=== PATIENT | female | born 1970 | race Caucasian/White ===

== ENCOUNTER → 2016-05-13 | Outpatient (CLI) | payer BC ==
--- NOTE | 2016-05-13 14:52 | CT ---
EXAMINATION TYPE: CT cervical spine w con DATE OF EXAM: 05/13/2016 2:17 PM COMPARISON: NONE HISTORY: Radiculopathy, pain CT DLP: 511.8 mGycm Contrast-enhanced CT of the cervical spine was performed with bone and soft tissue window settings tripathi bmitted. Coronal and sagittal reconstruction is obtained. There is normal alignment and prevertebra l soft tissues. I do not see evidence for fracture or subluxation. No significant degenerative patterson ges are present. Disc spaces are well preserved. No pathologic enhancement identified. Upper lung zon e emphysematous changes. IMPRESSION: No evidence for fracture or subluxation of the cervical spine. No significant disc herni ation or central stenosis.
== END | disposition home or self-care (01) ==
LOC: RADCTMAIN 13:42
PROVIDERS: ATTEND Family Medicine
DX: M54.12 Radiculopathy, cervical region (principal)
CPT/HCPCS: 72126; Q9967

== ENCOUNTER 2016-11-05 06:55 | Day surgery (SDC) | payer BC ==
[2016-10-31 10:57] VITALS: BMI 29.0
[~2016-11-05 06:55] MED LIST: LACTATED RINGERS 1,000 ML IV SCH; LIDOCAINE 1% 20 ML VIAL (10MG/ML) FOR IV START INTRADERMA PRN
[2016-11-05] MEDS: PHENYLEPHRINE 10% OPHTH DROPS 5 ML BTL OP ONE ×3 (07:47→08:01)
[2016-11-05] MEDS: CYCLOPENTOLATE 1% OPHTH SOLN 2 ML BTL OP ONE ×3 (07:50→08:03)
[2016-11-05] MEDS: FLURBIPROFEN 0.03% OPHTH DROPS 2.5 ML BTL OP ONE ×3 (07:52→08:05)
[2016-11-05 07:59] VITALS: RESP 16; TEMP 98.5
[2016-11-05] MEDS ORDERED: PROPOFOL 10 MG/ML 20 ML VIAL IV ONE (08:37)
[2016-11-05] MEDS ORDERED: BALANCED SALT IRRIG SOLN COMB2 15 ML IRRIG.SOLN IRRIGATION ONE (08:37)
[2016-11-05] MEDS ORDERED: HYALURONATE SODIUM INTRAOCULAR 1 EACH SYRINGE (10MG/ML) INTRAOCULA ONE (08:37)
[2016-11-05] MEDS ORDERED: EPINEPHrine (PF) 0.5 ML in BALANCED SALT IRRIG SOLN COMB2 500 ML IRRIGATION ONE (08:39)
--- NOTE | 2016-11-05 08:59 | P.OP ---
Date of Procedure: 11/05/16 Preoperative Diagnosis: Postoperative Diagnosis: Procedure(s) Performed: PREOPERATIVE DIAGNOSIS: Cataract, left eye. POSTOPERATIVE DIAGNOSIS: Cataract, left eye. OPERATION: Phacoemulsification cataract, left eye. DESCRIPTION OF PROCEDURE: The patient was taken to the preoperative holding area. Intravenous Propofol was given so as to bring about adequate sedation. The following mixture was given for local anesthesia: 5 mL of 2% lidocaine, 5 mL of 0.75% Marcaine, and 1 mL of Wydase. Approximately 4 mL was injected in the retrobulbar space of the surgical eye. Additional 1 mL was then directed to the temporal area of the surgical eye. This was performed to allow adequate neurological block of the facial muscles. The patient was revived and then taken into the operative room. The patient was prepped and draped in the usual sterile manner for the operative eye. A lid speculum was put into position. The conjunctiva was resected back from the limbus in the 12 o'clock position. Bleeding was controlled with electrocautery. A #69 blade was then used and a half-thickness scleral incision approximately 1-mm posterior to the limbus was made on bare sclera. This was shelved in the clear cornea using a crescent knife. Next a 15-degree blade was used to make a stab incision at the 3 o' clock position at the corneolimbal interface. Keratome blade was then used and the superior wound was extended into the anterior chamber. Viscoelastic was injected into the anterior chamber and to maintain its form. Next, a cystotome was used and a continuous anterior capsulotomy was made without difficulty. Hydrodissection using a blunt cannula and BSS was performed. Phaco probe was then employed and a groove extending from 12 to 6 o'clock in the lens was created. A Asad wand was used through the stab incision so as to perform a divide and conquer technique. Next an irrigation aspiration probe was utilized and any residual cortex was removed from the eye. Again, viscoelastic was injected into the anterior chamber. An Lit posterior chamber lens implant was placed in the cartridge and injected into the anterior chamber without difficulty. The Strauss Technologyey hook was utilized to spin the lens into position and this was again performed without any difficulty. The irrigation and aspiration probe was again employed and any residual viscoelastic was removed from the eye. Then BSS was injected into the limbal stab incision and the anterior chamber re-inflated. The conjunctiva was reapproximated using electrocautery. One drop of 0.25% Timoptic was placed over the corneal along with TobraDex ophthalmic ointment. Two sterile patches and a Dickson eye shield were taped into position. The patient was transported to the recovery room in stable condition. Implants: Pathology: none sent Condition: stable Disposition: same day Indications for Procedure: Operative Findings: Description of Procedure:
[2016-11-05 09:18] VITALS: BP 167/90; PULSE 65
[2016-11-05] MEDS ORDERED: TIMOLOL 0.5% OPHTH SOLN (PF) 0.2 ML DROPERETTE OP ONE (23:00)
[2016-11-05] MEDS ORDERED: BUPIVACAINE (PF) 0.75% 5 ML, LIDOCAINE 4% (PF) 5 ML, HYALURONIDASE, HUMAN RECOMB 150 UNIT MISCELLANE ONE ×3 (23:00)
[2016-11-05] MEDS ORDERED: GENTAMICIN/PREDNISOL AC OPHTH OINT 3.5GM OPHTHALMIC ONE (23:00)
== END 2016-11-05 09:42 | disposition home or self-care (01) ==
LOC: OR 06:55
PROVIDERS: ATTEND Ophthalmology
DX: H26.9 Unspecified cataract (principal); H40.1190 Primary open-angle glaucoma, unspecified eye, stage unspecified; M19.90 Unspecified osteoarthritis, unspecified site; F17.200 Nicotine dependence, unspecified, uncomplicated; Z79.1 Long term (current) use of non-steroidal anti-inflammatories (NSAID); Z79.82 Long term (current) use of aspirin; Z79.891 Long term (current) use of opiate analgesic; Z79.899 Other long term (current) drug therapy; Z91.040 Latex allergy status; Z91.09 Other allergy status, other than to drugs and biological substances
CPT/HCPCS: 66984; V2632; J2001; J3470; J0171; J2704

== ENCOUNTER → 2017-04-01 | Day surgery (SDC) | payer BC ==
[2017-03-31 10:04] VITALS: BMI 28.5
[~2017-04-01] MED LIST changes: +LIDOCAINE 1% 20 ML VIAL (10MG/ML) FOR IV START INTRADERMA ONE; -LIDOCAINE 1% 20 ML VIAL (10MG/ML) FOR IV START INTRADERMA PRN; +LIDOCAINE 1% INJ 10MG/ML (20 ML MDV) ONE; +PROPOFOL 10 MG/ML 20 ML VIAL IV ONE
[2017-04-01 10:10] VITALS: TEMP 97.3
--- NOTE | 2017-04-01 10:42 | P.GSHP ---
History of Present Illness H&P Date: 04/01/17 Chief Complaint: GERD This a 38-year-old female for from Dr. Rajiv Reyes. Patient presents today for EGD. She's had issues with GERD. Past Medical History Past Medical History: COPD, Eye Disorder, GERD/Reflux, Liver Disease, Sleep Apnea/CPAP/BIPAP Additional Past Medical History / Comment(s): TROUBLE SWALLOWING, HX HEPATITS C , CHRONIC MICHA SHOULDER PAIN, GLAUCOMA, hx migraines, RESTLESS LEG History of Any Multi-Drug Resistant Organisms: None Reported Past Surgical History: Hysterectomy, Orthopedic Surgery Additional Past Surgical History / Comment(s): MICHA SHOULDERS ROTATOR CUFF, MICHA SHOULDERS BONE SPURS REMOVED, MICHA CATARACT SX, benign lump removed from nose Past Anesthesia/Blood Transfusion Reactions: Motion Sickness Smoking Status: Current every day smoker - Past Family History Father Family Medical History: Diabetes Mellitus, Hypertension, Myocardial Infarction ( NM), Osteoarthritis (OA) Mother Family Medical History: No Reported History Medications and Allergies Home Medications Medication Instructions Recorded Confirmed Type ALPRAZolam [Xanax] 2 mg PO HS 01/11/15 04/01/17 History Hydrocodone/Acetaminophen 1 tab PO QID PRN 01/11/15 04/01/17 History [Hydrocodon-Acetaminoph 7.5-325] Timolol 0.5% Ophth Gel Forming 1 drop BOTH EYES QAM 01/11/15 04/01/17 History [Timoptic-Xe 0.5% Gel Form] ZOLMitriptan [Zomig] 2.5 mg PO Q4H PRN 10/25/15 04/01/17 History Omeprazole [PriLOSEC] 40 mg PO DAILY 03/28/16 04/01/17 History Aspirin [Adult Low Dose Aspirin EC] 81 mg PO DAILY 10/31/16 04/01/17 History Aspirin/Acetaminophen/Caffeine 1 each PO QAM 10/31/16 04/01/17 History [Mynor's Ex-Str Powder Packet] Meloxicam [Mobic] 7.5 mg PO DAILY 10/31/16 04/01/17 History Tiotropium Br/Olodaterol HCl 1 spray INHALATION DAILY 10/31/16 04/01/17 History [Stiolto Respimat Inhal [place]] Albuterol Inhaler [Ventolin Hfa 1 - 2 puff INHALATION Q6HR PRN 03/31/17 History Inhaler] Calcium Carbonate [Calcium] 600 mg PO DAILY 03/31/17 03/31/17 History Cholecalciferol (Vitamin D3) 4,000 unit PO DAILY 03/31/17 03/31/17 History [Vitamin D3] Cyclobenzaprine [Flexeril] 10 mg PO TID 03/31/17 03/31/17 History Magnesium 250 mg PO DAILY 03/31/17 03/31/17 History Varenicline [Chantix] 1 mg PO BID 03/31/17 03/31/17 History rOPINIRole HCL [Requip] 0.5 mg PO BID 03/31/17 03/31/17 History Allergies Allergy/AdvReac Type Severity Reaction Status Date / Time adhesive Allergy Rash/Hives Verified 04/01/17 10:13 latex Allergy Itching Verified 04/01/17 10:13 Surgical - Exam Vital Signs Temp Pulse Resp BP Pulse Ox 97.3 F L 76 16 125/90 96 04/01/17 10:00 04/01/17 10:00 04/01/17 10:00 04/01/17 10:00 04/01/17 10:00 - General well developed, no distress - Eyes PERRL - ENT normal pinna - Neck no masses - Respiratory normal expansion - Cardiovascular Rhythm: regular - Abdomen Abdomen: soft, non tender Assessment and Plan Assessment: GERD. We'll perform EGD.
[2017-04-01 10:55] VITALS: RESP 18
--- NOTE | 2017-04-01 10:56 | P.OP ---
Date of Procedure: 04/01/17 Preoperative Diagnosis: GERD Postoperative Diagnosis: Antral gastritis Mild esophagitis No significant hiatal hernia Procedure(s) Performed: EGD Anesthesia: MAC Surgeon: Vitaly Cohen Pathology: other (Antrum, esophagus) Condition: stable Disposition: PACU Description of Procedure: The patient's placed on the endoscopy table in the lateral position. She received IV sedation. The gastroscope placed oropharynx and passed into the esophagus and into the stomach. Scope was then placed through the pylorus. The first and second portion of the of the duodenum appeared minimally inflamed a biopsies was performed. Scope was then brought back the antrum this was mildly inflamed a biopsies performed. Scope was unretroflexed and remainder stomach appeared normal. There is no significant hiatal hernia. The GE junction was at 40 cm.. The distal esophagus appeared inflamed. A biopsies performed. The proximal esophagus appeared normal. Scope was withdrawn for patient. Due to the patient's symptoms of indigestion a HIDA scan was ordered.
[2017-04-01 11:10] VITALS: BP 125/89; PULSE 75
--- NOTE | 2017-04-01 13:54 | NM ---
EXAMINATION TYPE: NM hepatobiliary w EF DATE OF EXAM: 04/01/2017 COMPARISON: NONE INDICATION: Indigestion TECHNIQUE: After the intravenous administration of 5.9 mCi Tc 99m Mebrofenin hepatobiliary scintigrap hy is performed. Images were obtained immediately post injection. FINDINGS: There is prompt uptake and excretion of radiotracer by the liver. Extrahepatic ducts are identified at 12 minutes. The gallbladder is visualized within 19 minutes. Small bowel activity is noted within 34 minutes. At one hour 8 ounces of oral ensure plus is given to mimic CCK and gallbladder ejection fraction is c alculated at 71 %, which is in the normal range. (Normal >35% and <80%.). IMPRESSION: 1. Normal hepatobiliary scan
== END | disposition home or self-care (01) ==
LOC: ORWHC2ENDO 09:45
PROVIDERS: ATTEND Surgery
DX: K21.0 Gastro-esophageal reflux disease with esophagitis (principal); K29.50 Unspecified chronic gastritis without bleeding; K29.80 Duodenitis without bleeding; J44.9 Chronic obstructive pulmonary disease, unspecified; G47.30 Sleep apnea, unspecified; G25.81 Restless legs syndrome; H40.9 Unspecified glaucoma; G89.29 Other chronic pain; M25.512 Pain in left shoulder; M25.511 Pain in right shoulder; F41.9 Anxiety disorder, unspecified; G43.909 Migraine, unspecified, not intractable, without status migrainosus; F17.200 Nicotine dependence, unspecified, uncomplicated; Z91.040 Latex allergy status; Z91.048 Other nonmedicinal substance allergy status; Z79.82 Long term (current) use of aspirin; Z79.1 Long term (current) use of non-steroidal anti-inflammatories (NSAID); Z79.899 Other long term (current) drug therapy; Z99.89 Dependence on other enabling machines and devices; Z83.3 Family history of diabetes mellitus; Z82.49 Family history of ischemic heart disease and other diseases of the circulatory system
CPT/HCPCS: 43239; 88305; 88342; 78226; A9537; J2001; J2704

== ENCOUNTER → 2017-12-25 | Outpatient (CLI) | payer BC ==
--- NOTE | 2017-12-29 11:40 | MM ---
Reason for exam: screening (asymptomatic). Last mammogram was performed 2 years and 1 month ago. History: Patient is postmenopausal. Physical Findings: A clinical breast exam by your physician is recommended on an annual basis and results should be correlated with mammographic findings. MG Screening Mammo w CAD Bilateral CC and MLO view(s) were taken. Prior study comparison: November 20, 2015, bilateral MG screening mammo w CAD. August 10, 2013, bilateral digital screening mammo w/CAD. There are scattered fibroglandular densities. No significant changes when compared with prior studies. ASSESSMENT: Benign, BI-RAD 2 RECOMMENDATION: Routine screening mammogram of both breasts in 1 year.
== END | disposition home or self-care (01) ==
LOC: RADMAMWWP 13:26
PROVIDERS: ATTEND Family Medicine
DX: Z12.31 Encounter for screening mammogram for malignant neoplasm of breast (principal)
CPT/HCPCS: 77067

== ENCOUNTER → 2018-02-12 | Outpatient (CLI) | payer BC ==
--- NOTE | 2018-02-12 14:52 | XR ---
"EXAMINATION TYPE: XR shoulder complete RT DATE OF EXAM: 02/12/2018 COMPARISON: NONE HISTORY: Pain TECHNIQUE: Shoulder examined in 3 used FINDINGS: The humeral head articulates with the glenoid. No acute fractures are evident. There is a subtle displacement of the distal acromion relation to the clavicle on one view. Mild sepa ration should be considered. A follow up study can be performed 7-10 days from acute trauma for continued pain. IMPRESSION: 1. Clinical consideration for acromioclavicular joint separation is recommended. A study without and with weights could further evaluate this finding. 2. Acute fractures identified. A Yellow level critical message alert has been initiated for Rajiv Aiken MD via the [employer] 36 0 | Critical Results System on 02/12/2018 2:49 PM. This message alert has been sent to Rajiv Aiken MD via the preferences provided by the clinician for the receipt of Radiology Critical Findings. [facility] ID [id number]."
[2018-02-12 15:53] LABS: Basophils # (A) 0.1 k/uL (0-0.2); Basophils % (A) 1 %; Eosinophils # (A) 0.2 k/uL (0-0.7); Eosinophils % (A) 2 %; HCT 50.9 % (34.0-46.0); HGB 16.4 gm/dL (11.4-16.0); Lymphocytes # (A) 3.4 k/uL (1.0-4.8); Lymphocytes % (A) 37 %; MCH 32.1 pg (25.0-35.0); MCHC 32.3 g/dL (31.0-37.0); MCV 99.3 fL (80.0-100.0); Mean Platelet Volume 7.5; Monocytes # (A) 0.4 k/uL (0-1.0); Monocytes % (A) 4 %; Neutrophils # (A) 4.9 k/uL (1.3-7.7); Neutrophils % (A) 54 %; Platelet Count 274 k/uL (150-450); RBC 5.13 m/uL (3.80-5.40); WBC 9.1 k/uL (3.8-10.6)
[2018-02-12 17:50] LABS: ALT 109 U/L (9-52); AST 66 U/L (14-36); Alkaline Phosphatase 74 U/L (38-126); Anion Gap 10 mmol/L; Blood Urea Nitrogen 13 mg/dL (7-17); Calcium 9.8 mg/dL (8.4-10.2); Carbon Dioxide 20 mmol/L (22-30); Chloride 109 mmol/L (98-107); Cholesterol 197 mg/dL (<200); Glucose 98 mg/dL (74-99); HDL Cholesterol 61 mg/dL (40-60); LDL Cholesterol,Calculated 117 mg/dL (0-99); Potassium 4.6 mmol/L (3.5-5.1); Sodium 139 mmol/L (137-145); Total Bilirubin 0.6 mg/dL (0.2-1.3); Total Protein 7.5 g/dL (6.3-8.2); Triglycerides 97 mg/dL (<150)
[2018-02-13 15:26] LABS: Hepatits C Virus RNA DETECTED (Not detected)
== END | disposition home or self-care (01) ==
LOC: RADXRMAIN 13:45
PROVIDERS: ATTEND Family Medicine
DX: M12.811 Other specific arthropathies, not elsewhere classified, right shoulder (principal); B17.10 Acute hepatitis C without hepatic coma; I10 Essential (primary) hypertension; Z79.899 Other long term (current) drug therapy
CPT/HCPCS: 36415; 80053; 80061; 84443; 85025; 87522

== ENCOUNTER 2018-03-09 07:57 | Day surgery (SDC) | payer BC ==
[2018-03-02 14:54] VITALS: BMI 26.9
[~2018-03-09 07:57] MED LIST changes: +DEXAMETHASONE SOD PHOSPHATE 10 MG/ML 1 ML VIAL IV ONE; +HYDROmorphone 0.5 MG/0.5 ML SYRINGE IVP PRN; -LIDOCAINE 1% 20 ML VIAL (10MG/ML) FOR IV START INTRADERMA ONE; +LIDOCAINE 1% 20 ML VIAL (10MG/ML) FOR IV START INTRADERMA PRN; -LIDOCAINE 1% INJ 10MG/ML (20 ML MDV) ONE; +ONDANSETRON 4 MG/2 ML VIAL IVP ONE; -PROPOFOL 10 MG/ML 20 ML VIAL IV ONE; +SCOPOLAMINE 1.5MG/72HR PATCH TRANSDERM ONE
[2018-03-09 08:17] VITALS: RESP 16; TEMP 98.5
[2018-03-09] MEDS ORDERED: GLYCOPYRROLATE 0.2 MG/ML 2 ML VIAL ONE (08:53)
[2018-03-09] MEDS ORDERED: PROPOFOL 10 MG/ML 20 ML VIAL IV ONE (08:53)
[2018-03-09] MEDS ORDERED: LIDOCAINE 1% INJ 10MG/ML (20 ML MDV) ONE (08:53)
--- NOTE | 2018-03-09 08:59 | P.GSHP ---
History of Present Illness H&P Date: 03/09/18 Chief Complaint: Dysphagia, GERD This is a 47-year-old female who's had complaints with dysphagia. Patient is a known history of GERD. She presents today for EGD. Past Medical History Past Medical History: COPD, Eye Disorder, GERD/Reflux, Liver Disease, Osteoarthritis (OA), Sleep Apnea/CPAP/BIPAP Additional Past Medical History / Comment(s): HX HEPATITS C, CHRONIC MICHA SHOULDER PAIN, GLAUCOMA, hx migraines, RESTLESS LEG, "food gets stuck-had a torn esophagus" History of Any Multi-Drug Resistant Organisms: None Reported Past Surgical History: Hysterectomy, Orthopedic Surgery Additional Past Surgical History / Comment(s): MICHA SHOULDERS ROTATOR CUFF, MICHA SHOULDERS BONE SPURS REMOVED, MICHA CATARACT SX, benign lump removed from nose Past Anesthesia/Blood Transfusion Reactions: Motion Sickness Past Psychological History: No Psychological Hx Reported Additional Psychological History / Comment(s): denies Smoking Status: Current every day smoker Past Alcohol Use History: Occasional Additional Past Alcohol Use History / Comment(s): STARTED SMOKING AGE 11 (1983), 1 PPD Past Drug Use History: Marijuana Additional Drug Use History / Comment(s): . - Past Family History Father Family Medical History: Cancer Mother Family Medical History: Deep Vein Thrombosis (DVT) Medications and Allergies Home Medications Medication Instructions Recorded Confirmed Type ALPRAZolam [Xanax] 2 mg PO HS 01/11/15 03/02/18 History Hydrocodone/Acetaminophen 1 tab PO QID PRN 01/11/15 03/02/18 History [Hydrocodone-Acetamin 7.5-325] Timolol 0.5% Ophth Gel Forming 1 drop BOTH EYES QAM 01/11/15 03/02/18 History [Timoptic-Xe 0.5% Gel Form] ZOLMitriptan [Zomig] 2.5 mg PO Q4H PRN 10/25/15 03/02/18 History Aspirin [Adult Low Dose Aspirin EC] 81 mg PO DAILY 10/31/16 03/02/18 History Aspirin/Acetaminophen/Caffeine 1 each PO QAM 10/31/16 03/02/18 History [Mynor's Ex-Str Powder Packet] Albuterol Inhaler [Ventolin Hfa 1 - 2 puff INHALATION Q6HR PRN 03/31/17 History Inhaler] Calcium Carbonate [Calcium] 600 mg PO DAILY 03/31/17 03/02/18 History Cholecalciferol (Vitamin D3) 4,000 unit PO DAILY 03/31/17 03/02/18 History [Vitamin D3] Cyclobenzaprine [Flexeril] 10 mg PO HS 03/31/17 03/02/18 History Magnesium 250 mg PO DAILY 03/31/17 03/02/18 History Tiotropium Br/Olodaterol HCl 1 spray INHALATION QAM 03/02/18 03/02/18 History [Stiolto Respimat Inhal [place]] Allergies Allergy/AdvReac Type Severity Reaction Status Date / Time adhesive Allergy Rash/Hives Verified 03/02/18 14:39 latex Allergy Itching Verified 03/02/18 14:39 Surgical - Exam Vital Signs Temp Pulse Resp BP Pulse Ox 98.5 F 89 16 154/88 95 03/09/18 08:15 03/09/18 08:15 03/09/18 08:15 03/09/18 08:15 03/09/18 08:15 - General well developed, no distress - Eyes PERRL - ENT normal pinna - Neck no masses - Respiratory normal expansion - Cardiovascular Rhythm: regular - Abdomen Abdomen: soft, non tender Assessment and Plan Assessment: History of GERD Dysphagia We'll perform EGD.
--- NOTE | 2018-03-09 09:12 | P.OP ---
Date of Procedure: 03/09/18 Preoperative Diagnosis: Dysphagia GERD Postoperative Diagnosis: Antral gastritis No hiatal hernia Mild esophagitis Procedure(s) Performed: EGD Anesthesia: MAC Surgeon: Vitaly Cohen Pathology: other (Antral gastritis, esophagus) Condition: stable Disposition: PACU Description of Procedure: The patient's placed on the endoscopy table in the lateral position. She received IV sedation. The gastroscope placed oropharynx passed in the esophagus and the stomach. Scope was then placed through the pylorus. First and second portion of the duodenum appeared normal. Scope was then brought back the antrum this was mildly inflamed. A biopsies was performed. The scope was then retroflexed remainder stomach appeared normal. There was no significant hiatal hernia. The GE junction was at 40 cms. The distal esophagus is mildly inflamed a biopsies performed. The proximal esophagus appeared normal. Scope was withdrawn for patient.
[2018-03-09 09:40] VITALS: BP 131/88; PULSE 86
== END 2018-03-09 09:55 | disposition home or self-care (01) ==
LOC: ORWHC2ENDO 07:57
PROVIDERS: ATTEND Surgery
DX: K29.50 Unspecified chronic gastritis without bleeding (principal); K21.0 Gastro-esophageal reflux disease with esophagitis; K44.9 Diaphragmatic hernia without obstruction or gangrene; F41.9 Anxiety disorder, unspecified; F13.239 Sedative, hypnotic or anxiolytic dependence with withdrawal, unspecified; I65.29 Occlusion and stenosis of unspecified carotid artery; L03.119 Cellulitis of unspecified part of limb; J44.9 Chronic obstructive pulmonary disease, unspecified; J32.9 Chronic sinusitis, unspecified; L30.9 Dermatitis, unspecified; M94.0 Chondrocostal junction syndrome [Tietze]; F32.9 Major depressive disorder, single episode, unspecified; R26.9 Unspecified abnormalities of gait and mobility; E78.5 Hyperlipidemia, unspecified; K64.4 Residual hemorrhoidal skin tags; M67.40 Ganglion, unspecified site; K92.2 Gastrointestinal hemorrhage, unspecified; B19.10 Unspecified viral hepatitis B without hepatic coma; B17.10 Acute hepatitis C without hepatic coma; I10 Essential (primary) hypertension; I69.392 Facial weakness following cerebral infarction; N95.9 Unspecified menopausal and perimenopausal disorder; G43.909 Migraine, unspecified, not intractable, without status migrainosus; M50.10 Cervical disc disorder with radiculopathy, unspecified cervical region; G47.33 Obstructive sleep apnea (adult) (pediatric); E66.9 Obesity, unspecified; Z68.27 Body mass index [BMI] 27.0-27.9, adult; M19.071 Primary osteoarthritis, right ankle and foot; G25.81 Restless legs syndrome; M26.629 Arthralgia of temporomandibular joint, unspecified side; M75.90 Shoulder lesion, unspecified, unspecified shoulder; H40.9 Unspecified glaucoma; S43.109D Unspecified dislocation of unspecified acromioclavicular joint, subsequent encounter; X58.XXXD Exposure to other specified factors, subsequent encounter; R42 Dizziness and giddiness; G89.29 Other chronic pain; F17.210 Nicotine dependence, cigarettes, uncomplicated; Z99.89 Dependence on other enabling machines and devices; Z79.2 Long term (current) use of antibiotics; Z79.1 Long term (current) use of non-steroidal anti-inflammatories (NSAID); Z79.891 Long term (current) use of opiate analgesic; Z79.899 Other long term (current) drug therapy; Z79.82 Long term (current) use of aspirin; Z91.040 Latex allergy status; Z91.048 Other nonmedicinal substance allergy status
CPT/HCPCS: 88305; 43239; J2001; J2704

== ENCOUNTER → 2018-03-17 | Outpatient (CLI) | payer BC ==
[2018-03-17 12:45] LABS: Basophils # (A) 0.1 k/uL (0-0.2); Basophils % (A) 1 %; Eosinophils # (A) 0.1 k/uL (0-0.7); Eosinophils % (A) 1 %; HCT 50.5 % (34.0-46.0); HGB 16.8 gm/dL (11.4-16.0); Lymphocytes # (A) 2.9 k/uL (1.0-4.8); Lymphocytes % (A) 35 %; MCH 32.6 pg (25.0-35.0); MCHC 33.2 g/dL (31.0-37.0); Mean Platelet Volume 7.5; Monocytes # (A) 0.4 k/uL (0-1.0); Monocytes % (A) 5 %; Neutrophils # (A) 4.7 k/uL (1.3-7.7); Neutrophils % (A) 56 %; Platelet Count 261 k/uL (150-450); RBC 5.16 m/uL (3.80-5.40); RDW 12.8 % (11.5-15.5); WBC 8.3 k/uL (3.8-10.6)
[2018-03-17 19:22] LABS: Albumin 4.5 g/dL (3.80-4.90); Albumin/Globulin Ratio 1.96 (1.20-2.10); Anion Gap 7.3 mmol/L (4.00-12.00); Calcium 9.4 mg/dL (8.7-10.3); Carbon Dioxide 20.7 mmol/L (21.6-31.8); Globulin 2.3 g/dL (2.1-3.7); LDL Cholesterol,Calculated 99.6 mg/dL (0.0-131.0); Potassium 4.5 mmol/L (3.5-5.5); Total Bilirubin 0.4 mg/dL (0.2-1.2); Total Protein 6.8 g/dL (6.2-8.2); VLDL Calculation 15.4 mg/dL (5.00-40.00)
[2018-03-18 04:43] LABS: Hemoglobin A1C 5.9 % (4.0-6.0)
[2018-03-18 15:16] LABS: Hepatits C Virus RNA DETECTED (Not detected); LOG HCV IU/mL 6.49 (<1.08)
== END | disposition home or self-care (01) ==
LOC: LABWHC1 11:07
PROVIDERS: ATTEND Family Medicine
DX: I10 Essential (primary) hypertension (principal); Z79.899 Other long term (current) drug therapy
CPT/HCPCS: 36415; 80053; 80061; 83036; 84443; 85025; 87522

== ENCOUNTER → 2018-04-27 | Outpatient (CLI) | payer BC ==
[2018-04-27 14:46] LABS: Basophils # (A) 0.1 k/uL (0-0.2); Basophils % (A) 1 %; Eosinophils # (A) 0.1 k/uL (0-0.7); Eosinophils % (A) 1 %; HCT 49.7 % (34.0-46.0); HGB 16.7 gm/dL (11.4-16.0); Lymphocytes % (A) 37 %; MCH 32.8 pg (25.0-35.0); MCHC 33.6 g/dL (31.0-37.0); MCV 97.6 fL (80.0-100.0); Mean Platelet Volume 7.4; Monocytes # (A) 0.4 k/uL (0-1.0); Monocytes % (A) 5 %; Neutrophils # (A) 4.2 k/uL (1.3-7.7); Neutrophils % (A) 53 %; Platelet Count 245 k/uL (150-450); RBC 5.09 m/uL (3.80-5.40); RDW 12.9 % (11.5-15.5)
== END | disposition home or self-care (01) ==
LOC: LABPAT 13:49
PROVIDERS: ATTEND Surgery
DX: Z01.818 Encounter for other preprocedural examination (principal); K21.0 Gastro-esophageal reflux disease with esophagitis; Z01.812 Encounter for preprocedural laboratory examination
CPT/HCPCS: 85025; 86850; 86900; 86901; 93005

== ENCOUNTER → 2018-05-01 | Outpatient (CLI) | payer BC ==
[2018-05-01 14:52] LABS: Partial Thromboplastin Time 24.8 sec (22.0-30.0); Prothrombin Time 10.3 sec (9.0-12.0)
[2018-05-01 15:04] LABS: Albumin 4.2 g/dL (3.5-5.0); Potassium 4.3 mmol/L (3.5-5.1)
== END | disposition home or self-care (01) ==
LOC: LABPAT 13:50
PROVIDERS: ATTEND Surgery
DX: Z01.812 Encounter for preprocedural laboratory examination (principal); B19.20 Unspecified viral hepatitis C without hepatic coma; K21.9 Gastro-esophageal reflux disease without esophagitis; Z79.899 Other long term (current) drug therapy
CPT/HCPCS: 80051; 82040; 85610; 85730

== ENCOUNTER → 2018-05-01 | Outpatient (CLI) | payer BC ==
[2018-05-02 04:08] LABS: Albumin 4.2 g/dL (3.80-4.90); Albumin/Globulin Ratio 1.83 (1.20-2.10); Bilirubin, Conjugated 0.2 mg/dL (0.20-0.40); Bilirubin,Unconjugated 0.3 mg/dL; Globulin 2.3 g/dL (1.6-3.3); Total Bilirubin 0.5 mg/dL (0.3-1.2); Total Protein 6.5 g/dL (6.2-8.2)
[2018-05-04 08:07] LABS: Hepatits C Virus RNA DETECTED (Not detected); LOG HCV IU/mL 6.59 (<1.08)
== END ==
LOC: LABWHC1 13:52
PROVIDERS: ATTEND Physician Assistant
DX: B18.2 Chronic viral hepatitis C (principal)
CPT/HCPCS: 36415; 80076; 87522

== ENCOUNTER 2018-05-04 07:30 | Inpatient (IN) | payer BC ==
[2018-04-27 10:39] VITALS: BMI 25.9
[~2018-05-04 07:30] MED LIST changes: +HEPARIN SODIUM,PORCINE 5,000 UNIT/ML 1 ML VIAL SQ ONE; -LACTATED RINGERS 1,000 ML IV SCH; -LIDOCAINE 1% 20 ML VIAL (10MG/ML) FOR IV START INTRADERMA PRN; +MIDAZOLAM (PF) 2 MG/2 ML VIAL IV PRN; +ceFAZolin IN SWFI 2 GM/20 ML SYRINGE IVP ONE
[2018-05-04] MEDS: LACTATED RINGERS 1,000 ML IV SCH (08:00)
[2018-05-04 08:03] LABS: Glucose,Whole Blood 130 mg/dL (75-99)
--- NOTE | 2018-05-04 08:13 | P.GSHP ---
History of Present Illness H&P Date: 05/04/18 Chief Complaint: GERD This a 47-year-old female referred from Dr. Rajiv Reyes. MThe patient has had long-standing problems with reflux esophagitis. The patient underwent recent EGD is found have evidence of esophagitis. Patient has been well informed on the procedure of laparoscopic Manan fundoplication. The patient is aware the risk of the conversion to the open procedure, risk of injury to the stomach, liver and spleen. The patient is also a risk of recurrent GERD and dysphagia symptoms. The patient understands there is a postoperative diet of full liquids for 2 weeks after surgery. Past Medical History Past Medical History: COPD, Eye Disorder, GERD/Reflux, Hypertension, Liver Disease, Osteoarthritis (OA), Sleep Apnea/CPAP/BIPAP Additional Past Medical History / Comment(s): HX HEPATITS C, CHRONIC MICHA SHOULDER PAIN, GLAUCOMA, hx migraines, RESTLESS LEG, "food gets stuck-had a torn esophagus",varicose veins,does not use cpap History of Any Multi-Drug Resistant Organisms: None Reported Past Surgical History: Hysterectomy, Orthopedic Surgery Additional Past Surgical History / Comment(s): MICHA SHOULDERS ROTATOR CUFF, MICHA SHOULDERS BONE SPURS REMOVED, MICHA CATARACT SX, benign lump removed from nose Past Anesthesia/Blood Transfusion Reactions: Motion Sickness Additional Past Anesthesia/Blood Transfusion Reaction / Comment(s): no hx blood transfusion Past Psychological History: Anxiety, Depression Additional Psychological History / Comment(s): denies Smoking Status: Current every day smoker Past Alcohol Use History: Occasional Additional Past Alcohol Use History / Comment(s): STARTED SMOKING AGE 11 (1983), 1 PPD Past Drug Use History: Marijuana Additional Drug Use History / Comment(s): uses marijuanaapprox twice weekly - Past Family History Father Family Medical History: Cancer Mother Family Medical History: Deep Vein Thrombosis (DVT) Medications and Allergies Home Medications Medication Instructions Recorded Confirmed Type ALPRAZolam [Xanax] 2 mg PO HS 01/11/15 04/27/18 History Hydrocodone/Acetaminophen 1 tab PO QID PRN 01/11/15 04/27/18 History [Hydrocodone-Acetamin 7.5-325] Timolol 0.5% Ophth Gel Forming 1 drop BOTH EYES QAM 01/11/15 05/04/18 History [Timoptic-Xe 0.5% Gel Form] ZOLMitriptan [Zomig] 2.5 mg PO Q4H PRN 10/25/15 04/27/18 History Aspirin [Adult Low Dose Aspirin EC] 81 mg PO DAILY 10/31/16 04/27/18 History Aspirin/Acetaminophen/Caffeine 1 each PO QAM 10/31/16 04/27/18 History [Mynor's Ex-Str Powder Packet] Albuterol Inhaler [Ventolin Hfa 1 - 2 puff INHALATION Q6HR PRN 03/31/17 History Inhaler] Calcium Carbonate [Calcium] 600 mg PO DAILY 03/31/17 04/27/18 History Cholecalciferol (Vitamin D3) 4,000 unit PO DAILY 03/31/17 04/27/18 History [Vitamin D3] Cyclobenzaprine [Flexeril] 10 mg PO HS 03/31/17 04/27/18 History Magnesium 250 mg PO DAILY 03/31/17 04/27/18 History Tiotropium Br/Olodaterol HCl 1 spray INHALATION QAM 03/02/18 04/27/18 History [Stiolto Respimat Inhal [place]] amLODIPine BESYLATE [Norvasc] 2.5 mg PO QAM 04/27/18 04/27/18 History Allergies Allergy/AdvReac Type Severity Reaction Status Date / Time adhesive Allergy Rash/Hives Verified 04/27/18 10:19 latex Allergy Itching,red Verified 04/27/18 10:19 skin Surgical - Exam Vital Signs Temp Pulse Resp BP Pulse Ox 97.6 F 88 16 133/82 97 05/04/18 07:59 05/04/18 07:59 05/04/18 07:59 05/04/18 07:59 05/04/18 07:59 - General well developed, well nourished, no distress - Eyes PERRL - ENT normal pinna - Neck no masses - Respiratory normal expansion - Cardiovascular Rhythm: regular - Abdomen Abdomen: soft Results - Labs Abnormal Lab Results - Last 24 Hours (Table) 05/04/18 Range/Units 08:02 POC Glucose (mg/dL) 130 H (75-99) mg/dL Assessment and Plan Assessment: GERD. We'll perform laparoscopic Manan fundal plication.
[2018-05-04] MEDS ORDERED: NEOSTIGMINE 1 MG/ML 10 ML VIAL ONE (08:20)
[2018-05-04] MEDS ORDERED: PROPOFOL 10 MG/ML 20 ML VIAL IV ONE (08:20)
[2018-05-04] MEDS ORDERED: LIDOCAINE 1% INJ 10MG/ML (20 ML MDV) ONE (08:20)
[2018-05-04] MEDS ORDERED: GLYCOPYRROLATE 0.2 MG/ML 2 ML VIAL ONE (08:20)
[2018-05-04] MEDS ORDERED: HYDROmorphone (PF) 1 MG/ML ONE (08:20)
[2018-05-04] MEDS ORDERED: fentaNYL (PF) 50 MCG/ML 2 ML AMP ONE (08:20)
[2018-05-04] MEDS ORDERED: ROCURONIUM BROMIDE 10 MG/ML 10 ML VIAL IV ONE (08:20)
[2018-05-04] MEDS ORDERED: MIDAZOLAM 2 MG/2 ML VIAL ONE (08:20)
[2018-05-04] MEDS ORDERED: KETOROLAC 30 MG/ML 1 ML VIAL ONE (08:20)
[2018-05-04] MEDS ORDERED: BUPIVACAIN-EPI 0.25%-1:200,000 30 ML VIAL SQ ONE (08:25)
[2018-05-04] MEDS ORDERED: HYDROmorphone 1 MG/ML 1 ML SYRINGE IVP PRN (09:36)
--- NOTE | 2018-05-04 09:52 | P.OP ---
Date of Procedure: 05/04/18 Preoperative Diagnosis: GERD Postoperative Diagnosis: GERD Procedure(s) Performed: Laparoscopic Manan fundal plication Anesthesia: DARYA Surgeon: Vitaly Cohen Estimated Blood Loss (ml): 5 Pathology: none sent Condition: stable Disposition: PACU Description of Procedure: Emir patient was placed on the operating table in the supine position. The patient received general anesthesia. And was placed in dorsal lithotomy position. The patient was prepped and draped in the usual sterile fashion. The skin incision sites were anesthetized with 1% local Xylocaine. The skin was incised in the left periumbilical area and then using a blade less 5 mm trocar under direct visualization panel cavity was entered. After adequate insufflation the laparoscope was then placed into the peritoneal cavity. Next a 5 mm trochars placed in the right epigastric position. Another 5 millimeter trocar the right lateral position. Another 5 millimeter trocar in the left lateral position a 5 mm trocar is placed in the left epigastric position. And then the initial 5 mm trocar was exchanged for a 10 mm trocar. The left lateral lobe liver was retracted. The hernia was seen. The crural defect was then dissected using the Harmonic scissors device. A 360 crural dissection was performed the esophagus stomach was reduced back into the peritoneal Cavity. The crural defect was then closed using 2-0 Ethibond suture. Next the fundus of the stomach was mobilized using the Sealy scissors device. and then a 58-Serbian bougie dilator was placed oropharynx passed into the esophagus and stomach the fundal plication wrap was then performed by grasping the fundus posteriorly and bringing it around the esophagus and stomach fundoplication was then performed using 2-0 Ethibond suture. Care was taken that the fundal location rested over top of the intra-abdominal esophagus. There was no injury seen to the stomach or esophagus. The dilator was then withdrawn. The abdomen was irrigated there is no bleeding seen. The trochars were then withdrawn and then skin incision sites were closed using 3-0 Monocryl suture Steri-Strips are applied. Patient thought procedure well and sent to recovery room in stable condition.
[2018-05-04] MEDS ORDERED: LACTATED RINGERS 1,000 ML IV ONE ×2 (10:07)
[2018-05-04] MEDS: D5-0.45% NACL WITH KCL 20MEQ/L 1,000 ML IV SCH ×2 (11:37→16:42)
[2018-05-04] MEDS ORDERED: ONDANSETRON 4 MG/2 ML VIAL IVP PRN (21:05)
[2018-05-04] MEDS ORDERED: ONDANSETRON 4 MG/2 ML VIAL IVP ONE (21:06)
[2018-05-04] MEDS ORDERED: SUMAtriptan SUCCINATE 50 MG TAB PO PRN (22:43)
[2018-05-05] MEDS: LACTATED RINGERS 1,000 ML IV SCH (00:56)
[2018-05-05] MEDS: D5-0.45% NACL WITH KCL 20MEQ/L 1,000 ML IV SCH (03:37)
--- NOTE | 2018-05-05 08:35 | CONS ---
CONSULTATION CHIEF COMPLAINT: A 47-year-old female, status post Manan procedure. Medical management consult. Complaining of neck pain, pain in her posterior neck down to her left shoulder, tender to palpation. She is breathing good. No chest pain, shortness of breath. No lightheadedness, syncope. HOME MEDICINES: Reviewed. ALLERGIES: Reviewed. SYSTEM REVIEW: A 14-point review of systems \negative. PHYSICAL EXAM: Vital signs stable. CARDIOVASCULAR: S1, S2. LUNGS: Show scattered wheeze x4 lung. CARDIOVASCULAR: S1, S2. ABDOMEN: Soft. EXTREMITIES: No cyanosis, clubbing, edema. ASSESSMENT: 1. Cervical muscle spasm, status post Long. 2. History of migraines. Continue home medications. Please see further orders. MMODL / IJN: [id number] /
[2018-05-05] MEDS ORDERED: FORMOTEROL FUMARATE 20 MCG/2 ML NEBU INHALATION SCH ×2 (09:00)
[2018-05-05] MEDS ORDERED: TIMOLOL 0.5% OPHTH DROPS 5 ML BTL BOTH EYES SCH (09:00)
[2018-05-05] MEDS ORDERED: ASPIRIN 81 MG PO SCH (09:00)
[2018-05-05] MEDS ORDERED: amLODIPine 2.5 MG TAB PO SCH (09:00)
[2018-05-05] MEDS ORDERED: ENOXAPARIN 40 MG/0.4 ML SYRINGE SQ SCH (09:00)
[2018-05-05] MEDS: IPRATROPIUM 0.5 MG/2.5 ML NEBU INHALATION SCH ×2 (09:39→13:21)
--- NOTE | 2018-05-05 11:43 | FL ---
EXAMINATION TYPE: FL esophagus cervic/pharynx DATE OF EXAM: 05/05/2018 HISTORY: Postop Niesen COMPARISON: NONE TECHNIQUE: A single contrast esophagram is performed utilizing air and [id number] 25 cc. 29 seconds of fluoroscopy and 18 images submitted FINDINGS: There is no evidence of extravasation. No obstruction. Postsurgical changes in the epigastric region noted. IMPRESSION: No evidence of obstruction or extravasation.
[2018-05-05 12:28] VITALS: BP 147/94; RESP 16; TEMP 98.2
--- NOTE | 2018-05-05 13:00 | P.DS ---
Providers Date of admission: 05/04/18 07:30 Expected date of discharge: 05/05/18 Attending physician: Vitaly Cohen Consults: 05/04/18 09:36 Consult Physician Routine Consulting Provider: Rajiv Aiken Reason/Comments: Medical management Do you want consulting provider notified?: Yes Primary care physician: [facility] Course: 47-year-old female who underwent laparoscopic Manan fundoplication on 05/04/2018. Esophagram completed POD #1 is negative for obstruction or extravasation. Patient is doing well postoperatively without any immediate complications. She is stable for discharge home today. Patient is to resume her home dose of [place]. No Rx given at discharge. She is to remain on full liquid diet for 2 weeks. Discharge Diagnosis: 1. Reflux esophagitis 2. S/P laparoscopic Manan fundoplication Nurse practitioner note has been reviewed by physician. Signing provider agrees with the documented findings, assessment, and plan of care. Patient Condition at Discharge: Stable Plan - Discharge Summary Discharge Rx Participant: No New Discharge Prescriptions: Continue ALPRAZolam [Xanax] 2 mg PO HS Hydrocodone/Acetaminophen [Hydrocodone-Acetamin 7.5-325] 1 tab PO QID PRN PRN Reason: Pain Timolol 0.5% Ophth Gel Forming [Timoptic-Xe 0.5% Gel Form] 1 drop BOTH EYES QAM ZOLMitriptan [Zomig] 2.5 mg PO Q4H PRN PRN Reason: Migraine Headache Aspirin [Adult Low Dose Aspirin EC] 81 mg PO DAILY Aspirin/Acetaminophen/Caffeine [Goody's Ex-Str Powder Packet] 1 each PO QAM Cyclobenzaprine [Flexeril] 10 mg PO HS Albuterol Inhaler [Ventolin Hfa Inhaler] 1 - 2 puff INHALATION RT-Q6H PRN PRN Reason: Shortness Of Breath Cholecalciferol (Vitamin D3) [Vitamin D3] 4,000 unit PO DAILY Calcium Carbonate [Calcium] 600 mg PO DAILY Tiotropium Br/Olodaterol HCl [Stiolto Respimat Inhal [place]] 1 spray INHALATION QAM amLODIPine BESYLATE [Norvasc] 2.5 mg PO QAM Magnesium Oxide [Mag-Ox] 250 mg PO DAILY Discharge Medication List ALPRAZolam [Xanax] 2 mg PO HS 01/11/15 [History] Hydrocodone/Acetaminophen [Hydrocodone-Acetamin 7.5-325] 1 tab PO QID PRN [History] Timolol 0.5% Ophth Gel Forming [Timoptic-Xe 0.5% Gel Form] 1 drop BOTH EYES QAM 01/11/15 [History] ZOLMitriptan [Zomig] 2.5 mg PO Q4H PRN 10/25/15 [History] Aspirin [Adult Low Dose Aspirin EC] 81 mg PO DAILY 10/31/16 [History] Aspirin/Acetaminophen/Caffeine [Goody's Ex-Str Powder Packet] 1 each PO QAM [History] Albuterol Inhaler [Ventolin Hfa Inhaler] 1 - 2 puff INHALATION RT-Q6H PRN [History] Calcium Carbonate [Calcium] 600 mg PO DAILY 03/31/17 [History] Cholecalciferol (Vitamin D3) [Vitamin D3] 4,000 unit PO DAILY 03/31/17 [History] Cyclobenzaprine [Flexeril] 10 mg PO HS 03/31/17 [History] Tiotropium Br/Olodaterol HCl [Stiolto Respimat Inhal [place]] 1 spray INHALATION QAM 03/02/18 [History] amLODIPine BESYLATE [Norvasc] 2.5 mg PO QAM 04/27/18 [History] Magnesium Oxide [Mag-Ox] 250 mg PO DAILY 05/04/18 [History] Follow up Appointment(s)/Referral(s): Rajiv Aiken MD [Primary Care Provider] - 1 Week Vitaly Cohen MD [STAFF PHYSICIAN] - 1 Week Activity/Diet/Wound Care/Special Instructions: Patient does not require a rx for [place] at discharge. She may continue to use her [place] that is already prescribed to her. Clear liquid diet for two weeks No driving while taking [place] No lifting over 10 pounds You may shower. No soaking or tub baths Very light activity until you are reevaluated at your follow up appointment with your surgeon Discharge Disposition: HOME SELF-CARE
[2018-05-05 13:22] VITALS: PULSE 84
== END 2018-05-05 13:55 | disposition home or self-care (01) | DRG 328 ==
LOC: 2ORMAIN 07:30 → 6PED 09:51
PROVIDERS: ADMIT Surgery; ATTEND Surgery
PROC: 0DV44ZZ Restriction of Esophagogastric Junction, Percutaneous Endoscopic Approach (ICD-10-PCS; principal; 2018-05-04 09:30)
DX: K21.0 Gastro-esophageal reflux disease with esophagitis (principal); J44.9 Chronic obstructive pulmonary disease, unspecified; G47.30 Sleep apnea, unspecified; F41.9 Anxiety disorder, unspecified; G25.81 Restless legs syndrome; I10 Essential (primary) hypertension; F32.9 Major depressive disorder, single episode, unspecified; G43.909 Migraine, unspecified, not intractable, without status migrainosus; M19.90 Unspecified osteoarthritis, unspecified site; M54.2 Cervicalgia; H40.9 Unspecified glaucoma; I83.90 Asymptomatic varicose veins of unspecified lower extremity; M62.838 Other muscle spasm; K76.9 Liver disease, unspecified; F17.210 Nicotine dependence, cigarettes, uncomplicated; Z79.82 Long term (current) use of aspirin; Z79.899 Other long term (current) drug therapy; Z90.710 Acquired absence of both cervix and uterus; Z98.42 Cataract extraction status, left eye; Z99.89 Dependence on other enabling machines and devices; Z86.19 Personal history of other infectious and parasitic diseases; Z98.41 Cataract extraction status, right eye; Z80.9 Family history of malignant neoplasm, unspecified; Z83.2 Family history of diseases of the blood and blood-forming organs and certain disorders involving the immune mechanism; Z91.040 Latex allergy status; Z91.048 Other nonmedicinal substance allergy status
CPT/HCPCS: 74210; 86850; 86900; 86901; 94640

== ENCOUNTER → 2018-06-22 | Outpatient (CLI) | payer BC ==
[2018-06-22 15:24] LABS: HCT 43.7 % (34.0-46.0); MCH 33.1 pg (25.0-35.0); MCHC 34.3 g/dL (31.0-37.0); MCV 96.6 fL (80.0-100.0); Mean Platelet Volume 7.5; Platelet Count 279 k/uL (150-450); RBC 4.52 m/uL (3.80-5.40); RDW 12.7 % (11.5-15.5); WBC 9.1 k/uL (3.8-10.6)
[2018-06-23 02:05] LABS: Albumin 4.3 g/dL (3.80-4.90); Albumin/Globulin Ratio 1.79 (1.60-3.17); Bilirubin, Conjugated 0.2 mg/dL (0.20-0.40); Bilirubin,Unconjugated 0.3 mg/dL; Globulin 2.4 g/dL (1.6-3.3); Total Bilirubin 0.5 mg/dL (0.3-1.2); Total Protein 6.7 g/dL (6.2-8.2)
[2018-06-24 14:52] LABS: Hepatits C Virus RNA DETECTED (Not detected); Hepatits C Virus RNA, Quant 16 IU/mL (<12)
== END | disposition home or self-care (01) ==
LOC: LABWHC1 14:26
PROVIDERS: ATTEND Physician Assistant
DX: B18.2 Chronic viral hepatitis C (principal)
CPT/HCPCS: 36415; 80076; 85027; 87522

== ENCOUNTER → 2018-08-20 | Outpatient (CLI) | payer BC ==
[2018-08-20 14:51] LABS: HCT 43.6 % (34.0-46.0); HGB 14.3 gm/dL (11.4-16.0); MCH 32.5 pg (25.0-35.0); MCHC 32.7 g/dL (31.0-37.0); MCV 99.3 fL (80.0-100.0); Mean Platelet Volume 7.3; Platelet Count 291 k/uL (150-450); RBC 4.39 m/uL (3.80-5.40); RDW 12.7 % (11.5-15.5); WBC 9.5 k/uL (3.8-10.6)
[2018-08-20 18:44] LABS: ALT 12 U/L (8-44); AST 19 U/L (13-35); Alkaline Phosphatase 67 U/L (41-126); Bilirubin, Conjugated <0.20 mg/dL (0.20-0.40); Total Bilirubin 0.3 mg/dL (0.2-1.2)
[2018-08-21 15:45] LABS: Hepatits C Virus RNA Not detected (Not detected); Hepatits C Virus RNA, Quant <12 IU/mL (<12); LOG HCV IU/mL <1.08 (<1.08)
== END | disposition home or self-care (01) ==
LOC: LABWHC1 13:43
PROVIDERS: ATTEND Physician Assistant
DX: B18.2 Chronic viral hepatitis C (principal)
CPT/HCPCS: 36415; 80076; 85027; 87522

== ENCOUNTER → 2018-11-25 | Outpatient (CLI) | payer BC ==
[2018-11-25 14:58] LABS: HCT 47.6 % (34.0-46.0); HGB 15.9 gm/dL (11.4-16.0); MCH 32.9 pg (25.0-35.0); MCHC 33.3 g/dL (31.0-37.0); MCV 98.8 fL (80.0-100.0); Mean Platelet Volume 7.4; Platelet Count 307 k/uL (150-450); RBC 4.82 m/uL (3.80-5.40); RDW 12.9 % (11.5-15.5); WBC 8.6 k/uL (3.8-10.6)
[2018-11-25 18:16] LABS: Albumin 4.4 g/dL (3.80-4.90); Bilirubin, Conjugated 0.2 mg/dL (0.20-0.40); Bilirubin,Unconjugated 0.5 mg/dL; Globulin 2.2 g/dL (1.6-3.3); Total Bilirubin 0.7 mg/dL (0.2-1.2); Total Protein 6.6 g/dL (6.2-8.2)
[2018-11-26 13:25] LABS: LOG HCV IU/mL <1.08 (<1.08)
== END | disposition home or self-care (01) ==
LOC: LABWHC1 13:20
PROVIDERS: ATTEND Physician Assistant
DX: B18.2 Chronic viral hepatitis C (principal)
CPT/HCPCS: 36415; 80076; 85027; 87522

== ENCOUNTER → 2019-03-31 | Outpatient (CLI) | payer BC ==
--- NOTE | 2019-03-31 16:46 | MR ---
MR cervical, thoracic, lumbar spine with and without contrast HISTORY: Cervical pain, pain in thoracic spine and back pain Multiplanar multisequence and postcontrast images obtained through the cervical, thoracic, lumbar spi ne following 7 cc Gadavist IV Comparison cervical spine 05/13/2016 Cervical spine MRI: Cervical vertebral bodies show preserved height, alignment, and there is mild mul tilevel spondylosis with minimal endplate discogenic marrow signal change. Some loss of disc height s ignal present C4-5, C6-7. Cervical cord signal is maintained. No abnormal enhancement following contr ast administration. C2-3 unremarkable C3-4: There is a minimal posterior disc bulge causing slight anterior mass effect on the thecal sac. Uncovertebral joint hypertrophy results in some mild foraminal encroachment. No significant central s tenosis. C4-5: Unremarkable C5-6: Minimal posterior disc bulge noted. No significant central stenosis or foraminal encroachment. C6-7: Posterior broad-based disc bulge causes minimal anterior mass effect on the thecal sac. Uncover tebral joint hypertrophy causes some mild left-sided foraminal encroachment. C7-T1 unremarkable IMPRESSION: Mild degenerative disc disease. Thoracic spine MRI: No significant spinal stenosis or foraminal encroachment. No evident disc herniat ion. Thoracic vertebral bodies show preserved height and alignment, bone marrow signal. Disc spaces are ma intained. At T11-T12 nerve sheath diverticula are suspected seen better on the sagittal images. Mild facet arthropathy change noted at the lower lumbar levels. No abnormal enhancement following contrast administration. IMPRESSION: Essentially unremarkable thoracic MRI as described. Lumbar MRI: Lumbar vertebral bodies show preserved height and alignment. There is mild multilevel spo ndylosis with endplate discogenic marrow signal change. Loss of disc height signal is greatest at L5- S1, there is associated vacuum phenomenon. The conus is at T12-L1 shows an unremarkable appearance. T here is no significant spinal stenosis. No abnormal enhancement on contrast administration. L5-S1: Circumferential extension endplate disc complex extends towards the right neural foramen. Mini mal posterior disc bulge causes slight anterior mass effect on the thecal sac. There is facet arthrop athy. L4-5: There is a broad-based posterior disc bulge. Only mild anterior mass effect on the thecal sac. There is facet arthropathy with hypertrophy ligamentum flavum. Minimal posterior lateral mass effect on the thecal sac. L3-4: Minimal posterior disc bulge causes only slight anterior mass effect on the thecal sac. There i s facet arthropathy causing some mild anterolateral mass effect on the thecal sac. No significant spi nal stenosis or foraminal encroachment. L2-3 and L1-2: Unremarkable. There is some prominence of the left adrenal gland. IMPRESSION: Mild degenerative disc disease and facet arthropathy. Prominence of left adrenal gland ma y be due to hyperplasia, dedicated imaging could be performed for better evaluation.
== END | disposition home or self-care (01) ==
LOC: RADMRIMAIN 13:47
PROVIDERS: ATTEND Family Medicine
DX: M50.30 Other cervical disc degeneration, unspecified cervical region (principal); M54.6 Pain in thoracic spine; M51.36 Other intervertebral disc degeneration, lumbar region; M46.96 Unspecified inflammatory spondylopathy, lumbar region
CPT/HCPCS: 72156; 72157; 72158; A9585

== ENCOUNTER 2021-01-01 12:41 | Day surgery (SDC) | payer BC ==
[2020-12-28 11:59] VITALS: BMI 19.5
[~2021-01-01 12:41] MED LIST changes: -DEXAMETHASONE SOD PHOSPHATE 10 MG/ML 1 ML VIAL IV ONE; -HEPARIN SODIUM,PORCINE 5,000 UNIT/ML 1 ML VIAL SQ ONE; -HYDROmorphone 0.5 MG/0.5 ML SYRINGE IVP PRN; +LACTATED RINGERS 1,000 ML IV SCH; -MIDAZOLAM (PF) 2 MG/2 ML VIAL IV PRN; -ONDANSETRON 4 MG/2 ML VIAL IVP ONE; -SCOPOLAMINE 1.5MG/72HR PATCH TRANSDERM ONE; -ceFAZolin IN SWFI 2 GM/20 ML SYRINGE IVP ONE
[2021-01-01 13:01] VITALS: TEMP 97.3
[2021-01-01] MEDS ORDERED: LIDOCAINE 1% INJ 10MG/ML (20 ML MDV) ONE (15:09)
[2021-01-01] MEDS ORDERED: PROPOFOL 10 MG/ML 20 ML VIAL IV ONE (15:09)
--- NOTE | 2021-01-01 15:18 | P.GSHP ---
History of Present Illness H&P Date: 01/01/21 Chief Complaint: Screening colonoscopy, dysphagia This is a 50-year-old female who presents today for EGD and screening colonoscopy. She's had issues with dysphagia. Past Medical History Past Medical History: COPD, Eye Disorder, GERD/Reflux, Hypertension, Liver Disease, Osteoarthritis (OA), Sleep Apnea/CPAP/BIPAP Additional Past Medical History / Comment(s): HX HEPATITIS C-had tx., CHRONIC MICHA SHOULDER PAIN, GLAUCOMA, hx migraines, RESTLESS LEG, "food gets stuck-had a torn esophagus",varicose veins,does not use cpap, frequent constipation History of Any Multi-Drug Resistant Organisms: None Reported Past Surgical History: Hysterectomy, Orthopedic Surgery Additional Past Surgical History / Comment(s): IMCHA SHOULDERS ROTATOR CUFF, MICHA SHOULDERS BONE SPURS REMOVED, MICHA CATARACT SX, benign lump removed from nose Past Anesthesia/Blood Transfusion Reactions: Motion Sickness Additional Past Anesthesia/Blood Transfusion Reaction / Comment(s): no hx blood transfusion Smoking Status: Current every day smoker - Past Family History Father Family Medical History: Cancer Mother Family Medical History: Deep Vein Thrombosis (DVT) Medications and Allergies Home Medications Medication Instructions Recorded Confirmed Type ALPRAZolam [Xanax] 1 mg PO HS 01/11/15 01/01/21 History Hydrocodone/Acetaminophen 1 tab PO QID PRN 01/11/15 01/01/21 History [Hydrocodone-Acetamin 7.5-325] Timolol 0.5% Ophth Gel Forming 1 drop BOTH EYES QAM 01/11/15 01/01/21 History [Timoptic-Xe 0.5% Gel Form] Aspirin [Adult Low Dose Aspirin EC] 81 mg PO DAILY 10/31/16 01/01/21 History Aspirin/Acetaminophen/Caffeine 1 each PO QAM 10/31/16 01/01/21 History [[place]'s Ex-Str Powder Packet] Albuterol Inhaler (Mhu) [Ventolin 1 - 2 puff INHALATION RT-Q6H PRN 03/31/17 01/01/21 History Hfa Inhaler (Mhu)] Cyclobenzaprine [Flexeril] 10 mg PO HS 03/31/17 01/01/21 History Tiotropium Br/Olodaterol HCl 2 spray INHALATION QAM 03/02/18 01/01/21 History [Stiolto Respimat Inhal [place]] amLODIPine BESYLATE [Norvasc] 5 mg PO QAM 04/27/18 01/01/21 History Linaclotide [Linzess] 145 mcg PO DAILY 12/28/20 01/01/21 History Losartan Potassium [Cozaar] 25 mg PO DAILY 12/28/20 01/01/21 History Rizatriptan Benzoate [Rizatriptan] 10 mg PO DIRECTED PRN 12/28/20 01/01/21 History Allergies Allergy/AdvReac Type Severity Reaction Status Date / Time adhesive Allergy Rash/Hives Verified 01/01/21 12:55 latex Allergy Itching,red Verified 01/01/21 12:55 skin Surgical - Exam Vital Signs Temp Pulse Resp BP Pulse Ox 97.3 F L 75 18 134/87 99 01/01/21 12:59 01/01/21 12:59 01/01/21 12:59 01/01/21 12:59 01/01/21 12:59 - General well developed, well nourished, no distress - Eyes PERRL - ENT normal pinna - Neck no masses - Respiratory normal expansion - Cardiovascular Rhythm: regular - Abdomen Abdomen: soft, non tender Assessment and Plan Assessment: 's fascia, screening colonoscopy. We'll perform EGD and screening colonoscopy.
--- NOTE | 2021-01-01 15:34 | P.OP ---
Date of Procedure: 01/01/21 Preoperative Diagnosis: Screening Dysphagia Postoperative Diagnosis: Antral ulcers Procedure(s) Performed: EGD Colonoscopy Anesthesia: MAC Surgeon: Vitaly Choen Pathology: other (Antral ulcer) Condition: stable Disposition: PACU Description of Procedure: The patient's placed on the endoscopy table in the lateral position. She received IV sedation. The gastroscope placed oropharynx passed in the esophagus into the stomach. Scope was placed through the pylorus. The first second portion duodenum appeared normal. Scope summer back the antrum and there is evidence of ulceration. Several biopsies performed. Scope was retroflexed and remainder stomach appeared normal. The GE junction was at 40 cm per the distal esophagus appeared normal. Proximal esophagus. Scope withdrawn for patient. Next digital rectal exam was performed, this revealed very poor anal suture told. Flexible colonoscope was then placed patient anus and passed into the colon. The patient is unable to hold any air within the colon. Several times made to maneuver this colonoscope into the left colon was impossible due to lack of air insufflation. At this point scope withdrawn.
[2021-01-01 15:40] VITALS: RESP 16
[2021-01-01 15:58] VITALS: BP 111/71; PULSE 83
== END 2021-01-01 16:17 | disposition home or self-care (01) ==
LOC: ORWHC2ENDO 12:41
PROVIDERS: ATTEND Surgery
DX: Z12.11 Encounter for screening for malignant neoplasm of colon (principal); F17.200 Nicotine dependence, unspecified, uncomplicated; G25.81 Restless legs syndrome; G47.30 Sleep apnea, unspecified; I10 Essential (primary) hypertension; J44.9 Chronic obstructive pulmonary disease, unspecified; K21.9 Gastro-esophageal reflux disease without esophagitis; K25.9 Gastric ulcer, unspecified as acute or chronic, without hemorrhage or perforation; M19.90 Unspecified osteoarthritis, unspecified site; Z79.82 Long term (current) use of aspirin; Z86.19 Personal history of other infectious and parasitic diseases; Z91.040 Latex allergy status; Z88.9 Allergy status to unspecified drugs, medicaments and biological substances
CPT/HCPCS: 43239; J2001; J2704; G0121; 88305

== ENCOUNTER → 2021-01-31 | Outpatient (CLI) | payer BC ==
--- NOTE | 2021-01-31 12:10 | CT ---
EXAMINATION TYPE: CT abdomen pelvis w con DATE OF EXAM: 01/31/2021 COMPARISON: None HISTORY: diverticulitis CT DLP: 426.5 mGycm CONTRAST: CT scan of the abdomen and pelvis is performed with Oral Contrast and with IV Contrast, patient injec [place] with 100 mL of Isovue 300. FINDINGS: LUNG BASES-: No visible nodule. No infiltrate. Right basilar linear atelectasis versus parenchymal s carring. LIVER/GB: No calcified gallstones. No space occupying hepatic lesion. Biliary tree is of normal ca liber. PANCREAS: No inflammation. No distinct mass. SPLEEN: No splenic enlargement. No lesion seen. ADRENALS: No nodule. No thickening. KIDNEYS/BLADDER: No hydronephrosis. No nephrolithiasis. No distinct renal mass. Urinary bladder g rossly unremarkable. BOWEL: Normal appendix. Normal bowel caliber. No inflammation. Moderate fecal stasis. No evidence f or acute diverticulitis. GENITAL ORGANS: No gross abnormality. LYMPH NODES: No greater than 1cm abdominal or pelvic lymph nodes are appreciated. AORTA: No significant abnormality. OSSEOUS STRUCTURES: No significant abnormality is seen. OTHER: No significant additional abnormality is seen. IMPRESSION: 1. Moderate fecal stasis. No evidence for acute diverticulitis.
== END | disposition home or self-care (01) ==
LOC: RADCTMAIN 09:42
PROVIDERS: ATTEND Surgery
DX: R19.5 Other fecal abnormalities (principal)
CPT/HCPCS: 74177; Q9967

== ENCOUNTER → 2022-02-01 | Outpatient (CLI) | payer BC ==
--- NOTE | 2022-02-04 08:26 | MM ---
Reason for Exam: Screening (asymptomatic). Last mammogram was performed 4 year(s) and 1 month(s) ago. Patient History: Menarche at age 11. First Full-Term at age 18. Left ovary removed at age 40. Right ovary removed at age 40. Hysterectomy at age 40. Postmenopausal. Risk Values: Christie 5 year model risk: 1.0%. NCI Lifetime model risk: 7.7%. Prior Study Comparison: 08/10/2013 Bilateral Screening Mammogram, [facility]. 11/20/2015 Bilateral Screening Mammogram, [facility]. 12/25/2017 Bilateral Screening Mammogram, [facility]. Tissue Density: There are scattered fibroglandular densities. Findings: Analyzed By CAD. Increased asymmetric density upper outer right breast zone B. Additional views are recommended. No suspicious calcifications within either breast. Overall Assessment: Incomplete: need additional imaging evaluation, BI-RAD 0 Management: Diagnostic Mammogram of the right breast. A clinical breast exam by your physician is recommended on an annual basis and results should be correlated with mammographic findings. Electronically signed and approved by: Reza Saenz M.D. Radiologis
== END | disposition home or self-care (01) ==
LOC: RADMAMWWP 14:40
PROVIDERS: ATTEND Family Medicine
DX: Z12.31 Encounter for screening mammogram for malignant neoplasm of breast (principal); Z78.0 Asymptomatic menopausal state
CPT/HCPCS: 77067

== ENCOUNTER → 2023-06-25 | Outpatient (CLI) | payer BC ==
--- NOTE | 2023-06-25 12:55 | CT ---
EXAMINATION: CT ABDOMEN AND PELVIS WITHOUT IV CONTRAST DATE OF EXAMINATION: 06/25/2023. COMPARISON: 01/31/2021.. INDICATION: Right upper quadrant pain. PROCEDURE: Axial CT of the abdomen and pelvis was performed with sagittal and coronal reformatted i mages without contrast enhancement. The exam is limited because some types of pathology may not be ad equately demonstrated due to lack of contrast enhancement. CT dose lowering techniques were used, to include: automated exposure control, adjustment for patient size, and/or use of iterative reconstruct ion. FINDINGS: LOWER CHEST : The visualized lung bases are clear. There are no pleural or pericardial effusions. ABDOMEN: Liver and Biliary system: Normal. Adrenal glands: Normal. Kidneys and ureters: There are no renal stones or hydronephrosis. No ureteral stones are present.. Spleen: Normal. Pancreas: Normal. Gallbladder: Normal. Lymph nodes, Peritoneum and mesentery: There is no mesenteric or retroperitoneal lymphadenopathy. Gastrointestinal tract: There are no dilated loops of bowel or free intraperitoneal air. . The appe ndix is normal. There are some prior surgical changes around the region of the gastroesophageal junct ion. Aorta/IVC: There is moderate vascular calcification throughout the abdominal aorta without evidence of aneurysmal dilation. IVC normal. Abdominal wall: Normal. PELVIS: Fluid: There is no free fluid in the pelvis. Lymph Nodes: There is no pelvic or inguinal lymphadenopathy.. Urinary bladder: Normal. BONES: There are no osseous destructive lesions.. ADDITIONAL SIGNIFICANT FINDINGS: None. IMPRESSION: 1. No renal stones or hydronephrosis.. 2. No bowel obstruction or appendicitis.
--- NOTE | 2023-06-25 13:14 | CTL ---
EXAMINATION TYPE: CT Low Dose Lung DATE OF EXAM ORDERED: 06/25/2023 HISTORY: . Lung cancer screening CT DLP: 82.[address] CTDI: 2.2 mGy Automated exposure control for dose reduction was used. SCREENING VISIT: Follow-up. COMPARISON: 06/18/2022. TECHNIQUE: Low dose computed tomography scan was performed through the chest at 1 mm thick sections a nd reconstructed images in multiple planes at 1 mm and [address] DIAGNOSTIC QUALITY: Satisfactory FINDINGS: Mediastinum and Merry: There is no axillary, mediastinal or hilar lymphadenopathy. Pleural and Pericardial spaces: There are no pleural or pericardial effusions. Upper Abdomen: Bilateral adrenal nodules are compatible with adrenal adenomas. These are unchanged. T he visualized upper abdomen otherwise appears unremarkable. Cardiovascular: There is mild vascular calcification throughout the thoracic aorta without evidence o f aneurysmal dilation. Moderate patchy coronary artery calcifications are seen. Lung Parenchyma and Airways: Severe diffuse centrilobular emphysema is seen. There is scattered tiny calcified and noncalcified nodules within the lungs that are unchanged. There are no new or enlarging nodules identified. Bones: No fracture or aggressive osseous lesion. IMPRESSION: 1. No new or enlarging nodules. 2. Severe emphysema. 3. To moderate coronary artery calcification. CT LUNG RAD AND CT CHEST RECOMMENDATION: Lung-Rad 2 Benign Appearance or Behavior: Continue annual sc reening with LDCT in 12 months.
== END | disposition home or self-care (01) ==
LOC: RADCTMAIN 12:02
PROVIDERS: ATTEND Family Medicine
DX: Z12.2 Encounter for screening for malignant neoplasm of respiratory organs (principal); R10.11 Right upper quadrant pain; I25.10 Atherosclerotic heart disease of native coronary artery without angina pectoris; J43.9 Emphysema, unspecified; F17.210 Nicotine dependence, cigarettes, uncomplicated
CPT/HCPCS: 71271; 74176

== ENCOUNTER → 2024-11-01 | Outpatient (CLI) | payer BC ==
--- NOTE | 2024-11-01 14:24 | CTL ---
EXAMINATION TYPE: CT Low Dose Lung DATE OF EXAM ORDERED: 11/01/2024 COMPARISON: CT Low Dose Lung 06/25/2023, 06/18/2022 CLINICAL INDICATION: Female, 54 years old with history of Z12.2 ENCTR SCRN LUNG CANCER, F17.210; PHH, CURRENT SMOKER, 1 PACK A DAY FOR 40 YEARS, Lung cancer screening, History of Smoking/tobacco use. TECHNIQUE: Low dose computed tomography scan was performed through the chest at 1 mm thick sections a nd reconstructed images in multiple planes at 1 mm and [address] DLP: 74.[address] CTDI: 2.1 mGy Automated exposure control for dose reduction was used. CT DIAGNOSTIC QUALITY: Satisfactory FINDINGS: Nodules: Stable scattered tiny calcified and noncalcified pulmonary micronodules. Largest is within the right lower lobe abutting the major fissure measuring up to 3 mm (series 9, image 44). No definitive new or enlarging pulmonary nodule. LUNGS: COPD: Severity: Moderate centrilobular emphysematous changes with upper lobe predominance. Fibrosis: Severity: None Lymph nodes: None Other findings: Lower lobe linear scarring or atelectasis. RIGHT PLEURAL SPACE: Effusion: None Calcification: None Thickening: None Pneumothorax: None LEFT PLEURAL SPACE: Effusion: None Calcification: None Thickening: None Pneumothorax: None HEART: Heart Size: Normal Coronary Calcification: Small Pericardial Effusion: None OTHER FINDINGS: Upper abdomen: Postsurgical changes at the GE junction from hiatal hernia repair. Similar bilateral a drenal gland thickening likely representing adrenal hyperplasia. Bony thorax: None Supraclavicular region: None Other: Mild atherosclerotic calcification of the aorta and its branches. IMPRESSION: 1. Stable scattered calcified and noncalcified pulmonary micronodules measuring up to 3 mm. No new o r enlarging pulmonary nodules. 2. Moderate emphysematous changes. CT LUNG RAD AND CT CHEST RECOMMENDATION: Lung-Rad 2 Benign Appearance or Behavior: Continue annual sc reening with LDCT in 12 months. S Modifier (other clinically significant findings): None [facility], , 11/01/2024 2:22 PM
== END | disposition home or self-care (01) ==
LOC: RADCTMAIN 13:55
PROVIDERS: ATTEND Family Medicine
DX: Z12.2 Encounter for screening for malignant neoplasm of respiratory organs (principal); F17.210 Nicotine dependence, cigarettes, uncomplicated; R91.8 Other nonspecific abnormal finding of lung field; J43.2 Centrilobular emphysema
CPT/HCPCS: 71271